=== PATIENT | female | born 1980 | race Hispanic/Latino ===

== ENCOUNTER 2019-03-31 14:04 | Outpatient (CLI) | payer OTHER ==
--- NOTE | 2019-03-31 15:03 | CT ---
EXAM: CT abdomen and pelvis with IV contrast PROVIDED CLINICAL HISTORY: Abdominal pain COMPARISON: None FINDINGS: Trace bilateral pleural fluid. Small hypodensity involving the medial segment of the left hepatic lobe likely reflecting a cyst. The solid abdominal organs demonstrate an otherwise unremarkable CT appearance. Changes of prior cholecystectomy are noted. There is no bowel dilatation, inflammatory fat stranding, free fluid or free air apparent. There is n o evidence for appendicitis. No regional lymph node enlargement apparent. The regional major vascular structures appear unremarkab le. The osseous structures demonstrate no concerning lytic or blastic lesions. IMPRESSION: Trace bilateral pleural fluid. Otherwise unremarkable CT of the abdomen and pelvis.
== END 2019-03-31 14:05 | disposition home or self-care (01) ==
LOC: BICCT 14:04
PROVIDERS: ATTEND Family Medicine
DX: N32.81 Overactive bladder (principal); R39.198 Other difficulties with micturition; M54.5 Low back pain
CPT/HCPCS: 74177

== ENCOUNTER 2022-10-14 12:59 | Outpatient (CLI) | payer SELFPAY ==
[2022-10-14 14:20] LABS: #Eosinphils 0.1 10x3/uL (0.0-0.5); #Monocytes 0.4 10x3/uL (0.0-1.1); %Basophils 0.5 % (0.0-2.0); %Eosinophils 1.4 % (0.0-6.0); %Lymphocytes 36.2 % (18.0-47.0); %Monocytes 7.7 % (0.0-10.0); Hemoglobin 13.4 g/dL (12.0-15.5); Mean Corpuscular HGB CONC 32.1 g/dL (32.0-36.0); Mean Corpuscular Hemoglobin 27.6 pg (27.0-33.0); Mean Corpuscular Volume 86.2 fl (81.6-98.3); Platelet Count 252 10x3/uL (150-450); RBC Distribution Width 12.5 % (11.5-14.5); Red Blood Cell (RBC) Count 4.85 10x6/uL (3.90-5.03); White Blood Cell (WBC) Count 5.6 10x3/uL (3.5-10.5)
[2022-10-14 14:33] LABS: Anion Gap 11 mmol/L (10-20); BUN (Urea Nitrogen) 9 mg/dL (7.0-18.7); Calc. Creatinine Clearance 0 mL/min (70-130); Calcium 9.1 mg/dL (7.8-10.44); Carbon Dioxide 25 mmol/L (22-29); Chloride 109 mmol/L (98-107); Estimated GFR 107; Glucose 89 mg/dL (70-105); Potassium 4.1 mmol/L (3.5-5.1); Sodium 141 mmol/L (136-145)
== END 2022-10-14 13:00 | disposition home or self-care (01) ==
LOC: LAB 12:59
PROVIDERS: ATTEND Specialist
DX: Z01.818 Encounter for other preprocedural examination (principal); C50.912 Malignant neoplasm of unspecified site of left female breast
CPT/HCPCS: 80048; 85025; 93005; 93010

== ENCOUNTER 2022-10-19 07:07 | Day surgery (SDC) | payer SELFPAY ==
[2022-10-14 13:52] VITALS: BMI 37.0
[2022-10-19] MEDS ORDERED: Ketorolac Tromethamine 30 MG/ML VIAL ONE (10:00)
[2022-10-19] MEDS ORDERED: Acetaminophen 500 MG TAB ONE (10:00)
[2022-10-19] MEDS ORDERED: Bupivacaine HCl 0.5%/Epinephrine 1:200,000/PF 30 ml Vial ONE ×2 (13:51→16:01)
[2022-10-19] MEDS ORDERED: Lidocaine 2% PF 5 ML VIAL ONE (13:51)
[2022-10-19] MEDS ORDERED: Isosulfan Blue 50 MG/5 ML VIAL ONE (13:51)
[2022-10-19] MEDS ORDERED: Midazolam HCl 2 mg/2 ml Vial ONE (13:55)
[2022-10-19] MEDS ORDERED: fentaNYL PF 100 MCG/2 ML SYRINGE ONE (14:04)
[2022-10-19] MEDS ORDERED: Sodium Chloride 0.9% 100 ML ONE (14:07)
[2022-10-19] MEDS ORDERED: CEFAZOLIN 2 GM VIAL ONE (14:07)
[2022-10-19] MEDS ORDERED: Dexamethasone 20 MG/5 ML VIAL ONE (14:17)
[2022-10-19] MEDS ORDERED: PHENYLEPHRINE-NS 100 MCG/ML 10 ML SYRINGE ONE (14:17)
[2022-10-19] MEDS ORDERED: ePHEDrine Sulfate 50 MG/10 ML VIAL ONE (14:17)
[2022-10-19] MEDS ORDERED: PROPOFOL 200 MG/20 ML VIAL ONE (14:17)
[2022-10-19] MEDS ORDERED: Lidocaine 1% PF 5 ML VIAL ONE (14:17)
[2022-10-19] MEDS ORDERED: Ondansetron PF 4 MG/2 ML Vial ONE (14:17)
[2022-10-19] MEDS ORDERED: Lidocaine 1% (PF) 30 ML VIAL ONE (16:02)
[2022-10-19] MEDS ORDERED: EPINEPHrine 1 MG/ML AMP ONE (16:02)
== END 2022-10-19 17:57 | disposition home or self-care (01) ==
LOC: SDC 07:07
PROVIDERS: ATTEND Specialist
PROC: 0HBU0ZZ Excision of Left Breast, Open Approach (ICD-10-PCS; principal; 2022-10-19)
DX: C50.812 Malignant neoplasm of overlapping sites of left female breast (principal); Z17.0 Estrogen receptor positive status [ER+]; Z88.1 Allergy status to other antibiotic agents
CPT/HCPCS: 76098; 78195; 88307; A9541; C1713; J0171; J1100; J1885; J2001; J2250; J2405; J2704; J3490; Q9968

== ENCOUNTER 2022-11-23 11:25 | Day surgery (SDC) | payer SELFPAY ==
[2022-11-19 13:50] VITALS: BMI 35.4
[2022-11-23] MEDS ORDERED: Acetaminophen 500 MG TAB ONE (12:38)
[2022-11-23] MEDS ORDERED: Ketorolac Tromethamine 30 MG/ML VIAL ONE (12:38)
[2022-11-23] MEDS ORDERED: Midazolam HCl 2 mg/2 ml Vial ONE ×2 (13:40→13:56)
[2022-11-23] MEDS ORDERED: Propofol 500 MG/50 ML VIAL ONE (13:56)
[2022-11-23] MEDS ORDERED: fentaNYL 50 mcg/mL 1 mL Vial ONE (13:56)
[2022-11-23] MEDS ORDERED: EPINEPHrine 1 MG/10 ML Abboject SYRINGE ONE (14:04)
[2022-11-23] MEDS ORDERED: Lidocaine 1% (PF) 30 ML VIAL ONE (14:04)
[2022-11-23] MEDS ORDERED: Bupivacaine 0.25% HCL 30 ML VIAL ONE (14:04)
[2022-11-23] MEDS ORDERED: Sodium Chloride 0.9% 100 ML ONE (14:08)
[2022-11-23] MEDS ORDERED: CEFAZOLIN 2 GM VIAL ONE (14:08)
[2022-11-23] MEDS ORDERED: Ondansetron PF 4 MG/2 ML Vial ONE (14:14)
[2022-11-23] MEDS ORDERED: Lidocaine 1% PF 5 ML VIAL ONE (14:14)
[2022-11-23] MEDS ORDERED: PROPOFOL 200 MG/20 ML VIAL ONE (14:14)
== END 2022-11-23 16:31 | disposition home or self-care (01) ==
LOC: SDC 11:25
PROVIDERS: ATTEND Specialist
PROC: 0JH60WZ Insertion of Totally Implantable Vascular Access Device into Chest Subcutaneous Tissue and Fascia, Open Approach (ICD-10-PCS; principal; 2022-11-23)
DX: C50.912 Malignant neoplasm of unspecified site of left female breast (principal); E78.00 Pure hypercholesterolemia, unspecified; F32.A Depression, unspecified; Z88.1 Allergy status to other antibiotic agents; Z79.899 Other long term (current) drug therapy
CPT/HCPCS: 71045; C1788; J0171; J1642; J1885; J2001; J2250; J2405; J2704; J3010; J3490; S0020

== ENCOUNTER 2022-11-25 09:27 | Outpatient (CLI) | payer OTHER ==
[~2022-11-25 09:27] MED LIST: Iopamidol 370 76% 100 ML VIAL ONE
== END 2022-11-25 09:28 | disposition home or self-care (01) ==
LOC: NM 09:27
PROVIDERS: ATTEND Internal Medicine
DX: C50.412 Malignant neoplasm of upper-outer quadrant of left female breast (principal); Z98.890 Other specified postprocedural states
CPT/HCPCS: 71260; 74177; 78306; A9503; Q9967

== ENCOUNTER 2024-02-22 08:28 | Outpatient (CLI) | payer OTHER | END 2024-02-22 08:29 | disposition home or self-care (01) | LOC: BICMAMMO 08:28 | PROVIDERS: ATTEND Surgery | DX: Z08 Encounter for follow-up examination after completed treatment for malignant neoplasm (principal); Z85.3 Personal history of malignant neoplasm of breast; Z98.890 Other specified postprocedural states; Z91.89 Other specified personal risk factors, not elsewhere classified | CPT/HCPCS: 77066; G0279 ==

== ENCOUNTER 2024-12-29 08:43 | Outpatient (CLI) | payer OTHER | END 2024-12-29 08:44 | disposition home or self-care (01) | LOC: BICMAMMO 08:43 | PROVIDERS: ATTEND Internal Medicine | DX: M81.0 Age-related osteoporosis without current pathological fracture (principal); C50.412 Malignant neoplasm of upper-outer quadrant of left female breast | CPT/HCPCS: 77080 ==